=== PATIENT | female | born 1965 | race Caucasian/White ===

== ENCOUNTER → 2020-08-01 10:47 | Outpatient (CLI) | payer BC, SELFPAY ==
--- NOTE | 2020-08-01 10:59 | XR_ITS ---
PROCEDURE: XR CHEST PORTABLE CLINICAL HISTORY: SOB,COUGH COMPARISON: No exams were available for comparison FINDINGS: The cardiomediastinal silhouette and pulmonary vascularity are within normal limits. Patchy density is present in the left lower lobe and may be due to an area of atelectasis or infiltrate. The remaining lungs are clear. No acute bony abnormalities. IMPRESSION: Patchy airspace disease left lower lobe suggesting an area of atelectasis or infiltrate Dictated by: Paulino Tellez MD 08/01/2020 11:16 Paulino Tellez MD in [facility] 08/01/2020 11:16
== END ==
PROVIDERS: PCP Family Medicine; Visit Provider Family Medicine
DX: Z20.828 Contact with and (suspected) exposure to other viral communicable diseases (principal); U07.1 COVID-19; R06.02 Shortness of breath; R05 Cough
CPT/HCPCS: 71045; U0003